=== PATIENT | male | born 1960 | race Caucasian/White ===

== ENCOUNTER 2023-11-28 14:29 | Emergency (ER) | payer SELFPAY ==
[~2023-11-28] VITALS: Ht 198.1 cm; Wt 90.7 kg
[2023-11-28] VITALS (14 sets, daily range): BP systolic 112–144; BP diastolic 74–95
[2023-11-28] MEDS ORDERED: SODIUM CHLORIDE 0.9% 1,000 ML IV ONE (15:20)
[2023-11-28] MEDS ORDERED: VANCOMYCIN HCL 1 GM in SODIUM CHLORIDE 0.9% 250 ML IV ONE (15:25)
[2023-11-28] MEDS ORDERED: CLINDAMYCIN PHOSPHATE 50 ML IV ONE (15:25)
[2023-11-28 15:41] LABS: BASO% 0.4 % (0-3); EOS% 2.8 % (0-8); HEMATOCRIT 40.2 % (39.0-50.0); HEMOGLOBIN 13.1 g/dl (14.0-18.0); IMMATURE GRANULOCYTES 0.1 % (0.0-5.0); LYMPH% 11.3 % (15-41); MEAN CELL VOLUME 94.8 fL CALC (80.0-100.0); MEAN CORPUSCULAR HGB 30.9 pG CALC (26.0-32.0); MEAN CORPUSCULAR HGB CONC 32.6 g/dL CAL (32.0-36.0); MONO% 6.7 % (2-13); NEUT# 6.12 thou/uL (1.82-7.42); NEUT% 78.7 % (42-76); RED BLOOD COUNT 4.24 mill/uL (4.70-6.10)
[2023-11-28 15:52] LABS: ALBUMIN 3.7 g/dL (3.2-5.0); BILIRUBIN, TOTAL 0.5 mg/dL (0.2-1.3); CREATININE 1.1 mg/dL (0.7-1.3); POTASSIUM 4.4 mmol/l (3.5-5.1); TOTAL PROTEIN 6.5 g/dL (6.3-8.2)
[2023-11-28] MEDS ORDERED: CLEOCIN150 M1 PO (17:39)
[2023-11-28] MEDS ORDERED: OMEPRAZOLE DR40 MG PO (17:39)
== END 2023-11-28 18:26 | disposition home or self-care (01) | DRG 603 ==
LOC: ED 14:29
PROVIDERS: Emergency Medicine
DX: L03.115 Cellulitis of right lower limb (principal)